=== PATIENT | male | born 1975 | race Caucasian/White ===

== ENCOUNTER 2016-10-04 22:18 | Inpatient (IN) | payer MEDICARE, BC ==
--- NOTE | ~2016-10-04 | DS ---
Unit #: [id number] #: [id number] Patient: LASHAE PRINCE [id number] [address] [place], [place] [address] [id number] I MR#: [id number] NAME: LASHAE PRINCE ROOM: 563 Age: 41 Sex: M Admission Date: 10/05/2016 : 1975 Discharge Date: 10/06/2016 Attending Physician: Loreto Reece M.D. Primary Care Physician: No Primary Care Physician DISCHARGE SUMMARY REASON FOR ADMISSION Weakness. HISTORY OF PRESENT ILLNESS/HOSPITAL COURSE The patient is a 41-year-old male with prior history of idiopathic endstage renal disease who presented secondary to persistent intractable weakness. He does have a prior history of chronic systolic heart failure with ejection fraction of 35% to 40%, anemia, as well as hypertension. Initial evaluation in the emergency room yielded an elevated potassium level of approximately 8. His hemoglobin was 7. Consultation was placed to [facility] nephrology services. The patient underwent hemodialysis x2 through hospital course. His potassium was corrected. He did receive 1 unit of packed red blood cells, as well, during dialysis. From nephrology's standpoint, the patient was subsequently cleared to be discharged. Today, prior to transfusion, his hemoglobin now stands at 7.3. After discussion with the patient, outpatient GI evaluation has been recommended. Off and on over the past 2-3 years, he has had issues with decreased hemoglobin, for which he has been hospitalized, as well as received blood transfusions. Presumed diagnosis has been anemia of chronic disease secondary to endstage renal disease; however, he states that he has never had a formal GI evaluation, including upper and lower GI endoscopy procedures. Therefore, I did recommend that he follow up with his primary care physician to have outpatient GI evaluation set up. He appears, otherwise, stable and feels well. He is in agreement with the discharge plan. FINAL DISCHARGE DIAGNOSES 1. Hyperkalemia on admission. 2. Endstage renal disease. 3. Anemia. 4. Chronic systolic heart failure with ejection fraction of 35% to 40%. 5. Prior history of hypertension. DISCHARGE MEDICATIONS 1. Coreg 25 mg p.o. b.i.d. 2. Tylenol 650 mg p.o. q.6 p.r.n. 3. Norvasc 10 mg p.o. daily. 4. Hydralazine 75 mg p.o. q.8. 5. Imdur 30 mg p.o. daily. Unit #: [id number] #: [id number] Patient: LASHAE PRINCE 6. Nephrocaps 1 capsule p.o. daily. 7. Fosrenol 1,000 mg p.o. with snacks. 8. Auryxia 210 mg p.o. q.6. NOTE: Discharge medications to be reviewed by nephrology service prior to discharge. DISCHARGE CONDITION Stable. DISCHARGE DISPOSITION Home. Dictated by... Lee Soto/amanda TD: 10/08/2016 08:17 JOB #: [id number] DISCHARGE SUMMARY X Loreto Reece MD X DISCHARGE SUMMARY
--- NOTE | ~2016-10-04 | EKG ---
PATIENT: LASHAE PRINCE UNIT #: [id number] Ventricular Rate: 78 BPM Atrial Rate: 78 BPM P-R Interval: 198 ms QRS Duration: 124 ms Q-T Interval: 430 ms QTC Calculation(Bezet): 490 ms P [place]: 8 degrees Calculated R [place]: 17 degrees Calculated T [place]: 87 degrees Diagnosis Line: Normal sinus rhythm Diagnosis Line: Non-specific intra-ventricular conduction delay Diagnosis Line: ST and T wave abnormality, consider lateral ischemia Diagnosis Line: Abnormal ECG Diagnosis Line: When compared with ECG of 15-SEP-2015 05:49, Diagnosis Line: QRS duration has increased Diagnosis Line: Confirmed by DAMARIS BREAUX MD ([id number]) on Diagnosis Line: 10/05/2016 11:57:39 AM INTERPRETING : MELVI
--- NOTE | ~2016-10-04 | CO ---
Unit #: [id number] #: [id number] Patient: LASHAE PRINCE [id number] [address] [place], [place] [address] [id number] I MR#: [id number] NAME: LASHAE PRINCE ROOM: 563 Age: 41 Sex: M Admission Date: 10/05/2016 : 1975 Attending Physician: Loreto Reece M.D. Primary Care Physician: Primary Care Physician No Consultation Date: 10/05/2016 CONSULTATION REPORT HISTORY OF PRESENT ILLNESS Mr. Prince is a 41-year-old male followed by our service for end-stage renal disease maintained on home hemodialysis. The patient reports that he was in his usual state of health until approximately Tuesday when he began to feel weak. His weakness progressed to the point where he was starting to have difficulty with balance and standing up straight. He had some shortness of breath and stated he could only take breaths with brief, short inspirations. Finally, he reports his hands and feet began to go numb and cold prompting him to seek medical attention. On presentation to the emergency room, he was found to have a markedly elevated potassium as well as other findings prompting this admission. The patient reports that he has been doing fairly well. He reports he has been doing his dialysis treatments as directed. He denies problems with nausea or vomiting and, specifically, he has had no hemoptysis. He denies any kind of GI issues and has not noted dark stools or diarrhea. He has been treated for anemia as part of his dialysis management and reports that his hemoglobin had fallen as an outpatient to 7.2 and he was increased on his Aranesp recently. He reports he does not have a history of ulcers or lower GI bleeding. PAST MEDICAL HISTORY Significant for: 1. End-stage renal disease of unknown etiology. 2. History of fairly severe and persistent hypertension. 3. He was hospitalized here approximately a year ago for shortness of breath and was diagnosed as having acute systolic heart failure with an ejection fraction of approximately 35%. PAST SURGICAL HISTORY Notable for: 1. Cholecystectomy. 2. Vascular access surgeries. HOME MEDICATIONS Include: 1. Prinivil 40 mg p.o. b.i.d. 2. Coreg 25 mg p.o. b.i.d. 3. Sensipar 60 mg p.o. daily. 4. Auryxia 210 mg p.o. with meals and h.s. SOCIAL HISTORY The patient is a former smoker. He denies substance use. He reports he Unit #: [id number] #: [id number] Patient: LASHAE PRINCE does not drink. He lives with a partner. FAMILY HISTORY Noncontributory. REVIEW OF SYSTEMS Detailed as above. PHYSICAL EXAMINATION VITAL SIGNS: He was afebrile at 97.6 degrees. Blood pressure 166/92 with a pulse rate of 86 and O2 saturations of 97% on room air. GENERAL: At the time of my evaluation, he was just completing dialysis. His needles were still in his access. HEENT: Normocephalic. Pupils were equal and reactive. Sclerae and conjunctivae were clear. NECK: Supple without adenopathy. LUNGS: Clear to auscultation without rales or rhonchi. HEART: Regular rate with a normal S1 and S2. There was a 2/6 systolic ejection murmur heard best at the left second intercostal space but also expanding over the left precordium. ABDOMEN: Soft, nontender. No masses or organomegaly were noted. GENITALIA: Deferred. RECTAL: Deferred. EXTREMITIES: No lower extremity edema. No significant joint deformities or effusions were noted. He has a left forearm AV fistula which was in good shape. DIAGNOSTIC STUDIES LABORATORY: Chemistries were notable for a serum potassium of 8 with a followup potassium of 8.3. His creatinine was elevated at 16.5 with a followup of 17. His BUN was 111 on admission. CO2 is normal at 23, calcium was also normal at 8.4, his phosphorus is markedly elevated at 8.6. Other chemistries including liver enzymes were essentially normal. His hemoglobin was low at 7.0 and was found to be 6.7 on repeat. His white count was normal at 5.9 and his platelet counts were 187 initially and 134 on repeat. His MCV was normal at 92.6. Troponin was less than 0.05. He was noted to have an elevated eosinophil count. IMPRESSION 1. Hyperkalemia. The patient presented with life-threatening hyperkalemia and EKG changes. He has just completed dialysis with a 1 and 2 K bath over the course of his treatment. His potassium should be much improved. We will check it later on today. He will likely have some degree of rebound. Depending on the severity of his rebound, I would plan on dialyzing him tomorrow morning or possibly earlier. 2. Anemia. The patient's hemoglobin is low for unclear reasons. He reports it was 9.9 recently in the dialysis unit and we will confirm this. The possibility of an occult GI bleed must be considered. He has been transfused 1 unit at this point. We will continue his Aranesp. 3. End-stage renal disease. The patient's markedly elevated potassium along with a very high creatinine raises questions as to whether he is doing his dialysis treatments as he is supposed to be. Unfortunately, the equipment does not allow us to track whether he is compliant or note. There is a possibility that his access may be problematic and causing some recirculation, however, if so, then his potassium and creatinine will be very slow to recover. He had an Unit #: [id number] #: [id number] Patient: LASHAE PRINCE imaging study approximately a year ago which we will review. 4. Hypertension. Blood pressure control has been a problem in the past. We will resume his medications. We will clarify if this is his complete list when the dialysis unit opens. 5. History of systolic heart failure. As above, we need to control his blood pressure. Dictated by... Alfred Grewal M.D. MIMI/carolyne TD: 10/05/2016 16:18 JOB #: [id number] CONSULTATION REPORT X Alfred Grewal Jr, MD X CONSULTATION REPORT
--- NOTE | ~2016-10-04 | HP ---
Unit #: [id number] #: [id number] Patient: LASHAE PRINCE [id number] [address] [place], [place] [address] [id number] I MR#: [id number] NAME: LASHAE PRINCE ROOM: 563 Age: 41 Sex: M Admission Date: 10/05/2016 : 1975 Attending Physician: Paulie Ambrocio M.D. Primary Care Physician: No Primary Care Physician HISTORY AND PHYSICAL CHIEF COMPLAINT Weakness. HISTORY OF PRESENT ILLNESS The patient is a 41-year-old male who presents to [facility] emergency department complaining of weakness. She states this started yesterday. It is worse with exertion. Denies palpitations, chest pain. Denies bleeding. States he does have some mild dyspnea on exertion. PAST MEDICAL HISTORY End stage renal disease on home dialysis, hypertension, chronic anemia, chronic systolic heart failure with ejection fraction of 35% to 40%, chronic anemia. SOCIAL HISTORY The patient denies tobacco, alcohol, or illicit drug use. FAMILY HISTORY The patient denies any significant family history. ALLERGIES No known drug allergies. HOME MEDICATIONS Sensipar 60 mg daily; hydralazine 50 mg p.o. b.i.d.; Auryxia; Prinivil 40 mg p.o. b.i.d.; Coreg 12.5 mg p.o. daily; Nephrocaps. REVIEW OF SYSTEMS Ten point review of systems obtained and negative except as per HPI. PHYSICAL EXAMINATION VITAL SIGNS: Temperature 98.0, pulse 85, blood pressure 147/92. GENERAL: 41-year-old male in no acute distress, appears stated age. HEENT: Pupils equally round. Extraocular movements intact. Mucous membranes dry. NECK: Supple. No JVD or lymphadenopathy. HEART: Regular rate and rhythm. 3/6 systolic ejection murmur. No gallops or rubs. LUNGS: Clear to auscultation bilaterally. ABDOMEN: Nontender and nondistended. Positive bowel sounds. EXTREMITIES: No clubbing, cyanosis or edema. There are warm and dry. PSYCH: Alert and oriented x3. Affect is appropriate. NEUROLOGIC: Cranial nerves II-XII intact grossly. Patient moves all extremities equal and with purpose. Unit #: [id number] #: [id number] Patient: LASHAE PRINCE SKIN: Patient is pale. There is no rashes, bruises or ulcers. MUSCULOSKELETAL: No muscle or joint pain. No muscle or joint swelling. DIAGNOSTIC STUDIES LABORATORY STUDIES: Creatinine is 16.5, potassium is 8. Hemoglobin is 7 with a normal MCV. IMAGING STUDIES: Chest x-ray shows cardiomegaly and some mild pulmonary edema. ASSESSMENT AND PLAN 1. Hyperkalemia: Consult has been placed to the patient's manager transmission and hemodialysis has been ordered. The patient denies chest pain or palpitations. Peak T waves on EKG, but otherwise no arrhythmia. 2. Anemia: The patient has been chronically anemic. One unit of PBRC has been typed and crossed; however, not transfused given the patient's systolic heart failure and fear for volume overload. The patient will likely need transfusion after hemodialysis. 3. Chronic systolic heart failure: The patient currently had no significant shortness of breath. He is satting in the 90s on room air. Chest x-ray seems to show some pulmonary edema. I will hold the fluids and transfusions for now. 4. Prophylaxis: The patient has been started on Lovenox. Dictated by Paulie Ambrocio M.D. MARTHA/sofía TD: 10/05/2016 06:08 JOB #: [id number] HISTORY AND PHYSICAL X Paulie Ambrocio MD HISTORY AND PHYSICAL
--- NOTE | ~2016-10-04 | CR72 ---
[facility] A Service of [facility] & [facility] RADIOLOGY TEXT RESULTS PATIENT: LASHAE PRINCE LOCATION: [facility] 563- : [birth year] UNIT #: [id number] AGE: [address]: Loreto Reece MD SEX: M ORDER DR: [id number] [facility] [address] [facility]. [place], [place] [address] [id number] I MR#: [id number] Acc #: [id number] NAME: LASHAE PRINCE : 1975 SEX: M STUDY DATE/TIME: 10/04/2016 20:49 [facility]23 STUDY DESCRIPTION: CR Chest Single View Portable Attending Physician: Paulie Ambrocio M.D. Ordering Physician: Ed Wilson Chand M.D. Primary Care Physician: No Primary Care Physician MEDICAL IMAGING REPORT This report is preliminary unless electronic signature is present EXAM Portable chest, 10/04/2016 HISTORY Bilateral lower extremity numbness and tingling with shortness of breath and generalized weakness beginning 10/03/2016, benign essential hypertension. Smoking history for 10 years. FINDINGS The heart is enlarged but stable compared with 09/12/2015. There are interstitial infiltrates, characteristic of mild pulmonary edema. There are no pleural effusions. No pneumothorax. IMPRESSION Cardiomegaly and mild pulmonary edema. Dictated by... Haile Barrera M.D. THIS IS AN ELECTRONICALLY VERIFIED REPORT Haile Barrera M.D. at 10/05/2016 4:20 PM KRT/psc TD: 10/05/2016 02:51 JOB #: [id number] MEDICAL IMAGING REPORT COPY
--- NOTE | ~2016-10-04 | EKG ---
PATIENT: LASHAE PRINCE UNIT #: [id number] Ventricular Rate: 91 BPM Atrial Rate: 91 BPM P-R Interval: 174 ms QRS Duration: 100 ms Q-T Interval: 386 ms QTC Calculation(Bezet): 474 ms P [place]: 25 degrees Calculated R [place]: -10 degrees Calculated T [place]: 119 degrees Diagnosis Line: Normal sinus rhythm Diagnosis Line: LVH with replarization abnormalities Diagnosis Line: ST and T wave abnormality, consider lateral ischemia Diagnosis Line: Prolonged QT Diagnosis Line: Abnormal ECG Diagnosis Line: When compared with ECG of 04-OCT-2016 20:24, Diagnosis Line: (unconfirmed) Diagnosis Line: QRS duration has decreased Diagnosis Line: Nonspecific T wave abnormality now evident in Diagnosis Line: Anterior leads Diagnosis Line: Confirmed by DAMARIS BREAUX MD ([id number]) on Diagnosis Line: 10/05/2016 12:10:12 PM INTERPRETING MD: MELVI
[2016-10-04 20:56] LABS: INFLUENZA A NEG (NEG); INFLUENZA B NEG (NEG)
[2016-10-04 20:58] LABS: BASOPHIL# 0.1 X10e3 (0-0.3); EOSINOPHIL# 0.7 X10e3 (0-0.7); EOSINOPHIL% 7.9 % (0.0-7.0); HEMATOCRIT 21.4 % (38.0-50.0); LYMPHOCYTE# 0.7 X10e3 (1.0-3.5); LYMPHOCYTE% 8.6 % (17.0-45.0); MEAN CELL VOLUME 92.7 FL (83-96); MEAN CORPUSCULAR HEMOGLOBIN 30.5 PG (28-34); MEAN CORPUSCULAR HGB CONC 32.9 g/dL (30-36); MEAN PLATELET VOLUME 9.9 FL (6.5-11.5); MONOCYTE# 0.4 X10e3 (0-1.0); NEUTROPHIL# 6.6 X10e3 (1.5-7.1); NEUTROPHIL% 77.5 % (40-75); PLATELET COUNT 187 X10e3 (140-420); RED BLOOD COUNT 2.31 X10e (3.90-5.60); RED CELL DISTRIBUTION WIDTH 14.6 % (11.0-15.5); WHITE BLOOD COUNT 8.5 X10e3 (4.0-10.5)
[2016-10-04 21:04] LABS: DIFF IND YES
[2016-10-04 21:09] LABS: INR 1.2; PARTIAL THROMBOPLASTIN TIME 23.7 SECONDS (23.5-31.3); PROTHROMBIN TIME (PATIENT) 12.6 SECONDS (9.6-11.5)
[2016-10-04 21:12] LABS: POC - CKMB <1.0 ng/mL (0.0-7.9); POC - TROPONIN <0.05 ng/mL (<=0.05)
[2016-10-04 21:28] LABS: ANISOCYTOSIS MOD; PLATELET ESTIMATE NORMAL (NORMAL); POIKILOCYTOSIS SL
[2016-10-04 22:04] LABS: BILIRUBIN, DIRECT 0.1 mg/dL (0.0-0.2); BILIRUBIN,INDIRECT 0.7 mg/dL (0.0-0.9); BILIRUBIN,TOTAL 0.8 mg/dL (0.2-2.0); CALCIUM SERUM 8.4 mg/dL (8.4-10.2); CREATININE SERUM 16.5 mg/dL (0.6-1.4); GLOM FILT RATE Estimated 3.5 mL/min (>60)
[2016-10-04 22:10] LABS: BUN/CREATININE RATIO 6.72
[~2016-10-04 22:18] MED LIST: AURYXIA PO; CALCITRIOL PO; COREG PO; FOSRENAL PO; HYDRALAZINE HCL50 MG PO; IMDUR-ER30 M2 PO; LEVAQUIN250 MG PO; NEPHROCAPS1 CAP PO; NORVASC10 MG PO; PRINIVIL40 MG PO; RENAVIT TABLET0.8 MG PO; REQUIP0.5 MG PO; SENSIPAR30 MG PO; SENSIPAR60 MG PO; ZESTRIL40 MG PO
[2016-10-05] MEDS ORDERED: CARVEDILOL25 MG PO (01:27)
[2016-10-05 02:33] LABS: BASOPHIL# 0.1 X10e3 (0-0.3); BASOPHIL% 0.9 % (0-2.5); EOSINOPHIL# 0.3 X10e3 (0-0.7); EOSINOPHIL% 4.9 % (0.0-7.0); LYMPHOCYTE# 0.5 X10e3 (1.0-3.5); MEAN CELL VOLUME 92.6 FL (83-96); MEAN CORPUSCULAR HEMOGLOBIN 30.8 PG (28-34); MEAN CORPUSCULAR HGB CONC 33.2 g/dL (30-36); MEAN PLATELET VOLUME 8.6 FL (6.5-11.5); MONOCYTE# 0.3 X10e3 (0-1.0); MONOCYTE% 5.7 % (3.0-12.0); NEUTROPHIL# 4.7 X10e3 (1.5-7.1); NEUTROPHIL% 79.5 % (40-75); PLATELET COUNT 134 X10e3 (140-420); RED BLOOD COUNT 2.16 X10e (3.90-5.60); RED CELL DISTRIBUTION WIDTH 14.4 % (11.0-15.5); WHITE BLOOD COUNT 5.9 X10e3 (4.0-10.5)
[2016-10-05 02:36] LABS: DIFF IND NO; HEMOGLOBIN 6.7 gm/dL (13.0-16.0)
[2016-10-05 03:20] LABS: CALCIUM SERUM 8.4 mg/dL (8.4-10.2); GLOM FILT RATE Estimated 3.4 mL/min (>60)
[2016-10-05 03:27] LABS: BUN/CREATININE RATIO 6.7
[2016-10-05 03:31] LABS: POTASSIUM 8.3 mmol/L (3.5-5.1)
[2016-10-05 15:51] LABS: CALCIUM SERUM 8.2 mg/dL (8.4-10.2)
[2016-10-05 15:55] LABS: BUN/CREATININE RATIO 4.81; CREATININE SERUM 8.1 mg/dL (0.6-1.4); GLOM FILT RATE Estimated 7.9 mL/min (>60); POTASSIUM 4.9 mmol/L (3.5-5.1)
[2016-10-06 07:43] LABS: HEMATOCRIT 21.5 % (38.0-50.0); HEMOGLOBIN 7.3 gm/dL (13.0-16.0); MEAN CORPUSCULAR HEMOGLOBIN 30.8 PG (28-34); MEAN CORPUSCULAR HGB CONC 33.8 g/dL (30-36); MEAN PLATELET VOLUME 8.6 FL (6.5-11.5); RED BLOOD COUNT 2.36 X10e (3.90-5.60); WHITE BLOOD COUNT 6.7 X10e3 (4.0-10.5)
[2016-10-06 08:06] LABS: BUN/CREATININE RATIO 5.46; CALCIUM SERUM 8.6 mg/dL (8.4-10.2); CREATININE SERUM 9.7 mg/dL (0.6-1.4); GLOM FILT RATE Estimated 6.4 mL/min (>60); POTASSIUM 5.4 mmol/L (3.5-5.1)
[2016-10-06] MEDS ORDERED: NEPHROCAPS1 CAP PO (13:15)
[2016-10-06] MEDS ORDERED: IMDUR-ER30 M1 PO (13:18)
[2016-10-06] MEDS ORDERED: APRESOLINE PO (13:20)
[2016-10-06] MEDS ORDERED: FOSRENOL500 MG PO (13:22)
[2016-10-06] MEDS ORDERED: NORVASC2.5 MG PO (13:26)
[2016-10-07 15:15] LABS: HEP B SURFACE AG Nonreactive (Nonreactive); HEPATITIS B SURFACE ANTIBODY 31 mIU/mL (>=10)
== END 2016-10-06 15:02 | disposition home or self-care (01) | DRG 640 ==
LOC: CED 22:18 → C5C 10-05 12:40
PROVIDERS: Emergency Medicine; Family Medicine; Internal Medicine; Internal Medicine Nephrology
PROC: 5A1D60Z (ICD-10-PCS; principal; 2016-10-05)
PROC: 30233N1 Transfusion of Nonautologous Red Blood Cells into Peripheral Vein, Percutaneous Approach (ICD-10-PCS; 2016-10-05)
DX: E87.5 Hyperkalemia (principal); N18.6 End stage renal disease; I13.2 Hypertensive heart and chronic kidney disease with heart failure and with stage 5 chronic kidney disease, or end stage renal disease; I50.22 Chronic systolic (congestive) heart failure; D63.1 Anemia in chronic kidney disease; Z99.2 Dependence on renal dialysis; Z87.891 Personal history of nicotine dependence; Z90.49 Acquired absence of other specified parts of digestive tract
CPT/HCPCS: 71010; 80048; 80076; 82553; 82947; 84484; 85025; 85027; 85610; 85730; 86704; 86706; 86850; 86900; 86901; 86923; 87340; 87804; 93005; 99291; P9016